=== PATIENT | female | born 1965 | race Caucasian/White ===

== ENCOUNTER 2021-03-26 19:45 | Emergency (ER) | payer OTHER ==
[~2021-03-26] VITALS: Ht 165.1 cm; Wt 131.5 kg
[2021-03-26] MEDS ORDERED: XARELTO10 MG (20:09)
[2021-03-26] MEDS ORDERED: FARXIGA10 MG (20:09)
[2021-03-26] MEDS ORDERED: ATORVASTATIN CA20 MG (20:10)
[2021-03-26] MEDS ORDERED: TOPROL XL25 M1 (20:10)
[2021-03-26] MEDS ORDERED: ATACAND4 MG (20:11)
[2021-03-26] MEDS ORDERED: WELLBUTRIN XL300 MG (20:12)
[2021-03-26] MEDS ORDERED: WELLBUTRIN XL150 M1 (20:12)
[2021-03-26] MEDS ORDERED: SOLIQUA 100 UNIT3 ML (20:12)
[2021-03-26] MEDS ORDERED: DICLOFENAC SODI75 MG PO (21:29)
== END 2021-03-26 21:49 | disposition home or self-care (01) ==
LOC: ER 19:45
DX: S40.011A Contusion of right shoulder, initial encounter (principal); S50.01XA Contusion of right elbow, initial encounter; S80.01XA Contusion of right knee, initial encounter; W18.39XA Other fall on same level, initial encounter; Y93.89 Activity, other specified; Y92.89 Other specified places as the place of occurrence of the external cause; Y99.8 Other external cause status

== ENCOUNTER 2023-01-02 19:06 | Emergency (ER) | payer OTHER ==
[~2023-01-02] VITALS: Ht 165.1 cm; Wt 128.8 kg
[~2023-01-02 19:06] MED LIST: ATACAND4 MG; ATORVASTATIN CA20 MG; DICLOFENAC SODI75 MG PO; FARXIGA10 MG; SOLIQUA 100 UNIT3 ML; TOPROL XL25 M1; WELLBUTRIN XL150 M1; WELLBUTRIN XL300 MG; XARELTO10 MG
[2023-01-02] MEDS ORDERED: TRULICITY1.5 MG/0.5 SQ (19:37)
== END 2023-01-02 21:38 | disposition home or self-care (01) ==
LOC: ER 19:06
DX: S51.851A Open bite of right forearm, initial encounter (principal); W55.01XA Bitten by cat, initial encounter; Y93.89 Activity, other specified; Y92.89 Other specified places as the place of occurrence of the external cause; Y99.8 Other external cause status; Z88.1 Allergy status to other antibiotic agents; Z88.2 Allergy status to sulfonamides